=== PATIENT | male | born 1970 | race Caucasian/White ===

== ENCOUNTER 2016-08-31 19:27 | Emergency (ER) | payer MEDICAID ==
[~2016-08-31] VITALS: Ht 185.4 cm; Wt 104.9 kg
[~2016-08-31 19:27] MED LIST: CLIN300C93 PO; HYDR-3138 PO; LACT1CAP24 PO; LISI-167 PO
[2016-08-31 20:46] LABS: HEMOGLOBIN 13.7 g/dL (13.7-18.0)
[2016-08-31 21:01] LABS: BLOOD UREA NITROGEN 17 mg/dL (7-18)
[2016-08-31 21:09] LABS: IS PT STATUS REG ER OR PRE ER? YES
[2016-08-31 21:45] VITALS: BP 128/85
== END 2016-08-31 22:00 | disposition home or self-care (01) ==
LOC: ED 21:50
DX: R06.00 Dyspnea, unspecified (principal); B34.9 Viral infection, unspecified; Z87.891 Personal history of nicotine dependence; Z90.89 Acquired absence of other organs
CPT/HCPCS: 36415; 71010; 80048; 82040; 84484; 85025; 93005; 99285

== ENCOUNTER 2019-01-10 02:04 | Emergency (ER) | payer MEDICAID ==
[~2019-01-10] VITALS: Ht 185.4 cm; Wt 93.0 kg
[2019-01-10 03:00] VITALS: BP 101/50
== END 2019-01-10 03:38 | disposition home or self-care (01) ==
LOC: ED 03:19
DX: F10.120 Alcohol abuse with intoxication, uncomplicated (principal); E87.6 Hypokalemia; F17.200 Nicotine dependence, unspecified, uncomplicated
CPT/HCPCS: 36415; 80048; 80307; 82040; 85025; 99283